=== PATIENT | female | born 1975 | race Caucasian/White ===

== ENCOUNTER 2021-08-01 10:00 | Outpatient (CLI) | payer OTHER, SELFPAY | END 2021-08-01 11:00 | disposition home or self-care (01) | LOC: SLB 10:00 → EDSTATUS 08-06 07:00 | PROVIDERS: ATTEND Specialist | DX: Z01.812 Encounter for preprocedural laboratory examination (principal); Z20.822 Contact with and (suspected) exposure to COVID-19; N92.1 Excessive and frequent menstruation with irregular cycle; R10.2 Pelvic and perineal pain; D50.0 Iron deficiency anemia secondary to blood loss (chronic); D25.0 Submucous leiomyoma of uterus | CPT/HCPCS: U0003 ==

== ENCOUNTER 2021-09-05 11:29 | Outpatient (CLI) | payer OTHER, SELFPAY | END 2021-09-05 15:00 | disposition home or self-care (01) | LOC: SLB 11:29 → EDSTATUS 09-10 07:30 | PROVIDERS: ATTEND Specialist | DX: Z20.822 Contact with and (suspected) exposure to COVID-19 (principal) | CPT/HCPCS: U0003 ==

== ENCOUNTER 2022-12-30 06:13 | Day surgery (SDC) | payer OTHER ==
[~2022-12-30] VITALS: Ht 157.5 cm; Wt 67.1 kg
[2022-12-30] MEDS ORDERED: DEXAMETHASONE SOD PHOSPHATE 4 MG/ML VIAL ONE (07:16)
[2022-12-30] MEDS ORDERED: ceFAZolin SODIUM 2 GM VIAL ONE (07:16)
[2022-12-30] MEDS ORDERED: MIDAZOLAM HCL 2 MG/2 ML VIAL (VERSED) ONE (07:16)
[2022-12-30] MEDS ORDERED: LIDOCAINE 2%, 20 ML MDV ONE (07:16)
[2022-12-30] MEDS ORDERED: LR 1,000 ML IV.SOLN IV ONE (07:16)
[2022-12-30] MEDS ORDERED: ONDANSETRON HCL 4 MG/2 ML VIAL ONE (07:16)
[2022-12-30] MEDS ORDERED: KETOROLAC TROMETHAMINE 30 MG VIAL ONE (07:16)
[2022-12-30] MEDS ORDERED: PROPOFOL 200MG/ 20ML VIAL (DIPRIVAN) IV ONE (07:16)
[2022-12-30] MEDS ORDERED: DEXTROSE 50% JECT 50 ML DISP.SYRIN ONE (07:16)
[2022-12-30] MEDS ORDERED: ROCURONIUM BROMIDE 10 MG/ML (ZEMURON) ONE (07:16)
[2022-12-30] MEDS ORDERED: fentaNYL CITRATE/PF 100 MCG/2 ML AMP ONE (07:16)
[2022-12-30] MEDS ORDERED: BUPIVACAINE /EPINEPHRINE/PF 0.25% 30 ML VIAL ONE (07:16)
[2022-12-30] MEDS ORDERED: FUROSEMIDE 40 MG/4 ML VIAL ONE (07:16)
[2022-12-30] MEDS ORDERED: DESFLURANE 15 MIN GAS INH ONE (07:16)
[2022-12-30] MEDS ORDERED: SUGAMMADEX SODIUM 200 MG/2 ML VIAL IV ONE (07:16)
[2022-12-30] MEDS ORDERED: LABETALOL 100 MG/ 20ML VIAL IVP PRN (08:30)
[2022-12-30] MEDS ORDERED: LR 1,000 ML IV SCH (08:30)
[2022-12-30] MEDS ORDERED: METOCLOPRAMIDE HCL 10 MG/2 ML VIAL IVP PRN (08:30)
[2022-12-30] MEDS ORDERED: HYDROmorphone 1 MG/ML INJ. CARTRIDGE IVP PRN ×2 (08:30)
[2022-12-30] MEDS ORDERED: hydrALAZINE HCL 20 MG/ML VIAL IVP PRN (08:30)
[2022-12-30] MEDS ORDERED: MEPERIDINE HCL/PF 25 MG/ML DISP.SYRIN IVP PRN (08:30)
[2022-12-30] MEDS ORDERED: ACETAMINOPHEN I.V. 1000 MG 100 ML IV ONE (08:45)
[2022-12-30] MEDS ORDERED: HYDROcodone/ACETAMIN 5-325 MG TAB (NORCO/ VICODIN) PO PRN (09:30)
[2022-12-30] MEDS ORDERED: OXYCODONE/ACETAMINOPHEN 5-325 TABLET PO PRN ×2 (09:30)
[2022-12-30] MEDS ORDERED: ONDANSETRON HCL 4 MG/2 ML VIAL IVP PRN (09:30)
[2022-12-30] MEDS ORDERED: SIMETHICONE 80 MG TAB.CHEW PO SCH (13:00)
[2022-12-30] MEDS ORDERED: SIMETHICONE 80 MG TAB.CHEW ONE (13:58)
[2022-12-30] MEDS ORDERED: HYDROcodone/ACETAMIN 5-325 MG TAB (NORCO/ VICODIN) ONE (15:43)
[2022-12-30 16:30] VITALS: BP_SYST 125
== END 2022-12-30 17:25 | disposition home or self-care (01) ==
LOC: SDS 06:13 → SMU 06:15 → SDS 17:25
PROVIDERS: ATTEND Specialist
DX: N92.1 Excessive and frequent menstruation with irregular cycle (principal); R10.2 Pelvic and perineal pain; D25.0 Submucous leiomyoma of uterus; D25.1 Intramural leiomyoma of uterus; D26.9 Other benign neoplasm of uterus, unspecified; D25.2 Subserosal leiomyoma of uterus; N83.201 Unspecified ovarian cyst, right side; Z79.899 Other long term (current) drug therapy
CPT/HCPCS: 87081; 58552; 64488; 88305; 88307; J3490 ×2; J1100; J1940; J1885; J2001; J3465; J2405; J2704; J3010; J7120; C1727; J0131; S2900